=== PATIENT | female | born 1980 | race Caucasian/White ===

== ENCOUNTER 2017-07-09 12:31 | Emergency (ER) | payer BC, MEDICAID ==
[~2017-07-09] VITALS: Ht 160 cm; Wt 69.1 kg
[2017-07-09 13:04] VITALS: Ht 160 cm; Wt 69.1 kg
[2017-07-09] MEDS ORDERED: AMOX500C2 PO (16:07)
[2017-07-09] MEDS ORDERED: IBUP800T25 PO (16:07)
[2017-07-09] MEDS ORDERED: ONDA4TAB14 PO (16:07)
--- NOTE | 2017-07-09 16:14 | ERD ---
ER Documentation Chief Complaint Chief Complaint dizzy, sorethroat, fever & vomitting x3 days HPI This is a 36-year-old female presents with 2-3 days of symptoms including nausea , nonbloody nonbilious emesis, subjective fever, absence of cough and tonsillar swelling with sore throat. Symptoms are mild at this time. She denies any headache rash or neck stiffness. ROS All systems reviewed and are negative except as per history of present illness. Medications Home Meds Active Scripts Amoxicillin* (Amoxicillin*) 500 Mg Cap, 500 MG PO BID for 10 Days, CAP Prov:NISHA ERICKSON MD 07/09/17 Ondansetron (Ondansetron Odt) 4 Mg Tab.rapdis, 4 MG PO Q6H Y for NAUSEA AND/OR VOMITING, #30 TAB Prov:NISHA ERICKSON MD 07/09/17 Ibuprofen* (Motrin*) 800 Mg Tab, 800 MG PO Q6H Y for PAIN AND OR ELEVATED TEMP, #30 TAB Prov:NISHA ERICKSON MD 07/09/17 PMhx/Soc Medical and Surgical Hx: pt denies Medical Hx, pt denies Surgical Hx FmHx Family History: No diabetes Physical Exam Vitals Vital Signs Date Time Temp Pulse Resp B/P Pulse Ox O2 Delivery O2 Flow Rate FiO2 07/09/17 13:04 101.1 106 18 144/102 98 Physical Exam General: Well developed, well nourished, no acute distress Head: Normocephalic, atraumatic Eyes: Pupils equally reactive, EOM intact ENT: Moist mucous membranes, posterior pharynx with bilateral tonsillar swelling and exudates, uvula midline, tolerating secretions, soft submental space, tympanic membranes are nonbulging bilaterally Neck: Supple, mild anterior cervical chain lymphadenopathy Respiratory: Lungs clear bilaterally, no distress Cardiovascular: RRR, no murmurs, rubs, or gallops Abdominal: Soft, non-tender, non-distended, no peritoneal signs : Deferred MSK: No edema, no unilateral swelling, 5/5 strength Neurologic: Alert and oriented, moving all extremities, normal speech, no focal weakness, no cerebellar signs Skin: No rash Psych: Normal mood Results 24 hrs Current Medications Medications (Trade) Dose Ordered Sig/Jennifer Route PRN Reason Start Time Stop Time Status Last Admin Dose Admin Ibuprofen (Motrin) 800 mg ONCE ONCE PO 07/09/17 16:30 07/09/17 16:31 Procedures/MDM The patient's clinical presentation is very consistent with an acute tonsillitis concerning for bacterial infection. No evidence of deep space infection or peritonsillar abscess or retropharyngeal abscess. No indication for CT imaging. The patient was given Motrin here in the emergency room. She is otherwise well- appearing without systemic signs or symptoms. No indication for laboratory testing. The patient does not exhibit any clinical signs or symptoms concerning for serious bacterial infection or systemic illness. Based on history and clinical exam findings the patient does not appear to have evidence of pneumonia, strep pharyngitis, urinary tract infection, bacteremia, sepsis, or meningitis. For these reasons I do not believe it is necessary to obtain laboratory testing or diagnostic imaging. I believe it would be appropriate for symptom control, and close outpatient primary care follow-up. We discussed follow up with the patient's primary care doctor within 24 to 48 hours as needed. We also discussed return to the emergency room for worsening symptoms or worsening condition. Discharge Medications: Amoxicillin, Motrin, Zofran Departure Diagnosis: Primary Impression: Acute bacterial tonsillitis Condition: Stable Patient Instructions: Pharyngitis, Strep (Presumed) Referrals: [facility] YOU HAVE RECEIVED A MEDICAL SCREENING EXAM AND THE RESULTS INDICATE THAT YOU DO NOT HAVE A CONDITION THAT REQUIRES URGENT TREATMENT IN THE EMERGENCY DEPARTMENT. FURTHER EVALUATION AND TREATMENT OF YOUR CONDITION CAN WAIT UNTIL YOU ARE SEEN IN YOUR DOCTORS OFFICE WITHIN THE NEXT 1-2 DAYS. IT IS YOUR RESPONSIBILITY TO MAKE AN APPOINTMENT FOR FOLOW-UP CARE. IF YOU HAVE A PRIMARY DOCTOR --you should call your primary doctor and schedule an appointment IF YOU DO NOT HAVE A PRIMARY DOCTOR YOU CAN CALL OUR PHYSICIAN REFERRAL HOTLINE AT IF YOU CAN NOT AFFORD TO SEE A PHYSICIAN YOU CAN CHOSE FROM THE FOLLOWING [facility] [address] [facility] [address] [facility] [facility] [address] [facility] [address] [facility] [address] [facility] [facility] [address] [facility]. [facility] YOU HAVE RECEIVED A MEDICAL SCREENING EXAM AND THE RESULTS INDICATE THAT YOU DO NOT HAVE A CONDITION THAT REQUIRES URGENT TREATMENT IN THE EMERGENCY DEPARTMENT. FURTHER EVALUATION AND TREATMENT OF YOUR CONDITION CAN WAIT UNTIL YOU ARE SEEN IN YOUR DOCTORS OFFICE WITHIN THE NEXT 1-2 DAYS. IT IS YOUR RESPONSIBILITY TO MAKE AN APPOINTMENT FOR FOLOW-UP CARE. IF YOU HAVE A PRIMARY DOCTOR --you should call your primary doctor and schedule and appointment IF YOU DO NOT HAVE A PRIMARY DOCTOR YOU CAN CALL OUR PHYSICIAN REFERRAL HOTLINE AT . IF YOU CAN NOT AFFORD TO SEE A PHYSICIAN YOU CAN CHOSE FROM THE FOLLOWING [facility] INSTITUTIONS: [facility] [address] [place] [address] [facility] [address] [place] [address] [facility] [address] [place] [address] Additional Instructions: Llame al doctor nomdagobertodo tiburcio (Referral Sources) MAANA y catherine niels YULIYA PARA DENTRO DE NIELS SEMANA. Dgale a la secretaria que nosotros le instruimos hacer esta yuliya.Avise o llame si hernandez condicin se empeora antes de la yuliya. NISHA ERICKSON MD Jul 09, 2017 16:14
[2017-07-09] MEDS ORDERED: IBUPROFEN 800 MG TAB PO ONE (16:30)
[2017-07-09 16:48] VITALS: BP 141/82; PULSE 100; RESP 18; TEMP 98.1
== END 2017-07-09 16:48 | disposition home or self-care (01) ==
LOC: FTE 12:31
DX: J03.90 Acute tonsillitis, unspecified (principal)
CPT/HCPCS: Z7502; Z7610; 99284

== ENCOUNTER 2019-02-13 15:18 | Emergency (ER) | payer MEDICAID, OTHER ==
[~2019-02-13] VITALS: Ht 154.9 cm; Wt 68.2 kg
[~2019-02-13 15:18] MED LIST: AMOX500C2 PO; IBUP800T48 PO; ONDA4TAB14 PO
[2019-02-13 15:33] VITALS: RESP 19; Ht 154.9 cm; Wt 68.2 kg
--- NOTE | 2019-02-13 16:17 | ERD ---
ER Documentation Chief Complaint Chief Complaint nuasea, dizziness HPI 38-year-old female, presents to the emergency department, brought in by ambulance, complaining of sudden onset of a spinning sensation, associated with nausea and vomiting x2 while the patient was working at a [employer], the patient reports history of previous episodes, last one 1 month ago, she recently had a CT of the head 2 weeks ago which was reported as normal. The patient denies headache, no distal weakness, numbness or tingling. She also complains of left ear ringing but no fever or chills, no rashes, no sore throat. ROS All systems reviewed and are negative except as per history of present illness. Medications Home Meds Active Scripts Ondansetron Hcl* (Zofran*) 4 Mg Tablet, 4 MG PO Q8H PRN for NAUSEA AND/OR VOMITING, #20 TAB Prov:LALITHA MARCOS MD 02/13/19 Lorazepam* (Ativan*) 0.5 Mg Tablet, 0.5 MG PO Q8H PRN for ANXIETY, #10 TAB Prov:LALITHA MARCOS MD 02/13/19 Meclizine Hcl* (Antivert*) 12.5 Mg Tab, 12.5 MG PO Q6H PRN for DIZZINESS, #20 TAB Prov:LALITHA MARCOS MD 02/13/19 Amoxicillin* (Amoxicillin*) 500 Mg Cap, 500 MG PO BID for 10 Days, CAP Prov:NISHA ERICKSON MD 07/09/17 Ondansetron (Ondansetron Odt) 4 Mg Tab.rapdis, 4 MG PO Q6H PRN for NAUSEA AND/OR VOMITING, #30 TAB Prov:NISHA ERICKSON MD 07/09/17 Ibuprofen* (Motrin*) 800 Mg Tab, 800 MG PO Q6H PRN for PAIN AND OR ELEVATED TEMP, #30 TAB Prov:NISHA ERICKSON MD 07/09/17 Allergies Allergies: Coded Allergies: No Known Allergy (Unverified , 02/13/19) PMhx/Soc History of migraines. FmHx Family History: diabetes; No coronary disease Physical Exam Vitals Vital Signs Date Temp Pulse Resp B/P (MAP) Pulse Ox O2 O2 Flow FiO2 Time Delivery Rate 02/13/19 98.9 97 19 121/73 98 15:33 (89) Physical Exam Patient is in no acute distress, vital signs stable. Alert and fully oriented. HEENT: PERRLA, EOMI, Sclera and conjunctiva appear normal, Canals clear, tympanic membranes WNL. THROAT: Normal oropharynx. NECK: Supple, No lymphadenopathy. Full ROM without pain or tenderness. HEART: RRR, no rubs, murmurs, clicks or gallops. LUNGS: Clear to auscultation. ABDOMEN: Soft, non-tender without masses or hepatosplenomegaly. EXTREMITIES: No edema bilaterally. BACK: Full ROM, no deformity, normal back exam NEURO: Cranial nerves grossly intact, no motor or sensory deficit. Mild horizontal nystagmus while the patient was looking straight ahead with mildly abnormal head impulse test. Result Diagram: 02/13/19 1641 02/13/19 1641 Results 24 hrs Laboratory Tests Test 02/13/19 16:41 02/13/19 16:50 02/13/19 16:51 White Blood Count 11.2 10^3/ul Red Blood Count 5.12 10^6/ul Hemoglobin 14.8 g/dl Hematocrit 44.0 % Mean Corpuscular Volume 85.9 fl Mean Corpuscular Hemoglobin 28.9 pg Mean Corpuscular Hemoglobin Concent 33.6 g/dl Red Cell Distribution Width 12.1 % Platelet Count 231 10^3/UL Mean Platelet Volume 10.5 fl Immature Granulocytes % 0.500 % Neutrophils % 83.4 % Lymphocytes % 9.5 % Monocytes % 5.7 % Eosinophils % 0.2 % Basophils % 0.7 % Nucleated Red Blood Cells % 0.0 /100WBC Immature Granulocytes # 0.060 10^3/ul Neutrophils # 9.3 10^3/ul Lymphocytes # 1.1 10^3/ul Monocytes # 0.6 10^3/ul Eosinophils # 0.0 10^3/ul Basophils # 0.1 10^3/ul Nucleated Red Blood Cells # 0.0 10^3/ul Sodium Level 140 mmol/L Potassium Level 3.7 mmol/L Chloride Level 102 mmol/L Carbon Dioxide Level 26 mmol/L Anion Gap 12 Blood Urea Nitrogen 19 mg/dl Creatinine 0.71 mg/dl Est Glomerular Filtrat Rate mL/min > 60 mL/min Glucose Level 131 mg/dl Calcium Level 9.5 mg/dl POC Beta HCG, Qualitative NEGATIVE Bedside Urine pH (LAB) 7.5 Bedside Urine Protein (LAB) 1+ Bedside Urine Glucose (UA) Negative Bedside Urine Ketones (LAB) 1+ Bedside Urine Blood 2+ Bedside Urine Nitrite (LAB) Negative Bedside Urine Leukocyte Esterase (L Negative Current Medications Medications Dose Sig/Jennifer Start Time Status Last (Trade) Ordered Route PRN Stop Time Admin Dose Reason Admin Lorazepam 0.5 mg ONCE ONCE 02/13/19 DC 02/13/19 (Ativan) PO 16:30 02/13/19 16:49 16:45 Meclizine 25 mg ONCE ONCE 02/13/19 DC 02/13/19 HCl PO 16:30 02/13/19 16:48 (Antivert) 16:45 Ondansetron 8 mg ONCE STAT 02/13/19 DC 02/13/19 HCl (Zofran ODT 16:24 02/13/19 16:49 Odt) 16:45 Procedures/MDM Vital signs stable, neurovascular exam revealed horizontal nystagmus while the patient was looking straight ahead with mildly abnormal head impulse test. Differential diagnosis include but not limited to dehydration, cardiac arrhythmia, , Mnire's disease, vestibular neuronitis, migraine, vertigo, side effects of the medications, hypoglycemia. Less likely but is still a possibility, intracranial hemorrhage, ischemic stroke, THERAPIST OCCUPATIONAL neoplasm. Pertinent Data: 12 Lead ECG: Sinus rhythm, no ST changes, normal T wave, normal intervals Labs: CBC: normal, BMP: normal kidney function, normal electrolytes. Glucose: normal Urine : Negative. Physical examination and clinical presentation consistent most likely with posit ional vertigo During the ED course the patient remained stable, no new complaints. Results and clinical impression discussed with patient who agrees with management. The patient is stable to be treated outpatient and will be discharged home with instructions to follow up with the primary care provider in the next 48h. If symptoms persist, worsen or new symptoms develop, then patient should return to the ED immediately. Instructions explained and given directly by me to the patient with acknow ledgment and demonstrated understanding. Disclaimer: Inadvertent spelling and grammatical errors are likely due to EHR/dictation software use and do not reflect on the overall quality of patient care. Also, please note that the electronic time recorded on this note does not necessarily reflect the actual time of the patient encounter. Departure Diagnosis: Primary Impression: Dizziness Additional Impression: Positional vertigo Condition: Stable Patient Instructions: Inner Ear Problems: Causes of Dizziness (Vertigo) Additional Instructions: Muchas barrington por [facility] para hernandez servicio. Esperamos que en hernandez visita a la shari de emergencia hernandez problema medico haya sido solucionado y que se sienta mucho mejor. Para estar seguros que hernandez mejoria sigue en proceso, le pedimos el favor de hacer niels gaurav de seguimiento medico con hernandez doctor primario en los proximos 2-4 river. Lleve con usted estos documentos y las medicinas recetadas. Si edelmira sintomas empeoran, NO SE ESPERE, por favor regrese a shari de emergencia I NMEDIATAMENTE. En drew que usted no tenga un mdico de atencin primaria: Llame al mdico o clnica comunitaria de referencia que aparece abajo kaylene las horas de consultorio para hacer niels gaurav para que le vean. CLINICAS: [facility] [phone] [facility] [facility] [phone] [facility] [facility] [phone] [address] [facility]. [facility] [phone] [address] [facility]. [facility] [phone] [address] [facility]. [phone] MD Feb 13, 2019 16:17
[2019-02-13] MEDS ORDERED: ONDANSETRON (ODT) 4 MG TAB ODT STA (16:24)
[2019-02-13] MEDS ORDERED: LORAZEPAM 0.5 MG TAB PO ONE (16:30)
[2019-02-13] MEDS ORDERED: MECLIZINE 12.5 MG TAB PO ONE (16:30)
[2019-02-13] MEDS ORDERED: LORA-441 PO (17:36)
[2019-02-13] MEDS ORDERED: ONDA4TAB8 PO (17:36)
[2019-02-13] MEDS ORDERED: MECL12.574 PO (17:36)
[2019-02-13 18:00] VITALS: BP 128/81; PULSE 101
== END 2019-02-13 18:02 | disposition home or self-care (01) ==
LOC: FTE 15:18
DX: R42 Dizziness and giddiness (principal); R11.2 Nausea with vomiting, unspecified
CPT/HCPCS: 80048; 81003; 81025; 85025; Z7502; Z7610; 99283